=== PATIENT | female | born 1955 | race Caucasian/White ===

== ENCOUNTER 2020-04-09 18:02 | Emergency (ER) | payer MEDICARE, BC ==
[2020-04-09] MEDS ORDERED: ACETAMINOPHEN 325 MG TABLET PO ONE (20:28)
--- NOTE | 2020-04-09 20:34 | ER Document Report ---
HPI - HPI Time Seen by Provider: 04/09/20 20:29 Pain Level: 2 Notes: Patient is a 65-year-old female patient presented to emergency room with complaints of left wrist pain. Patient reports she fell over her crutches that she is using for an already existing right leg injury. she states this occurred just prior to arrival. - ROS Systems Reviewed and Negative: Yes All other systems reviewed and negative - REPRODUCTIVE Reproductive: DENIES: : - MUSCULOSKELETAL Musculoskeletal: REPORTS: Extremity pain Past Medical History - General Information source: Patient - Social History Smoking Status: Never Smoker Chew tobacco use (# tins/day): No Frequency of alcohol use: Rare Drug Abuse: None Family History: Reviewed & Not Pertinent Patient has homicidal ideation: No - Medical History Medical History: Negative Past Surgical History: Reports: Hx Tubal Ligation Vertical Provider Document - CONSTITUTIONAL Notes: PHYSICAL EXAMINATION: GENERAL: Well-appearing, well-nourished and in no acute distress. HEAD: Atraumatic, normocephalic. EYES: Pupils equal round extraocular movements intact, conjunctiva are normal. ENT: Nares patent NECK: Normal range of motion LUNGS: No respiratory distress Musculoskeletal: Swelling noted to left wrist, positive snuffbox tenderness, strong radial pulse, cap refill less than 3 seconds. NEUROLOGICAL: Normal speech, normal gait. PSYCH: Normal mood, normal affect. SKIN: Warm, Dry, normal turgor, no rashes or lesions noted. Course - Re-evaluation Re-evalutation: Wrist X-Ray 04/09/20 20:28 IMPRESSION: Acute distal radius fracture as above. - Vital Signs Vital signs: Temp Pulse Resp BP Pulse Ox 98.0 F 73 18 131/77 H 100 04/09/20 18:40 04/09/20 18:40 04/09/20 18:40 04/09/20 18:40 04/09/20 18:40 Procedures - Immobilization Left wrist Pre-Proc Neuro Vasc Exam: Normal Immobilizer type: Volar splint, Sling Performed by: PCT Post-Proc Neuro Vasc Exam: Normal Discharge - Discharge Clinical Impression: Distal radius fracture, left Qualifiers: Encounter type: initial encounter Fracture type: closed Fracture morphology: unspecified fracture morphology Qualified Code(s): S52.502A - Unspecified fracture of the lower end of left radius, initial encounter for closed fracture Condition: Stable Disposition: HOME, SELF-CARE Additional Instructions: Fractured Radius The bone called the radius is fractured. This type of fracture is typically caused by falling onto the outstretched hand. The fracture is not serious, however, and should heal well with adequate protection. Your physician's evaluation shows the bone is in good position to heal. A cast or splint is used to protect the fracture. For the first few days after the injury, the arm should be elevated and ice packed. Healing takes from three to eight weeks, depending on the age of the patient and the seriousness of the fracture. Your doctor has explained the treatment plan. It's important that you follow up as instructed to prevent complications. Call the doctor or return at once if severe pain or swelling occur, or if the hand becomes numb, swollen, or discolored. FOLLOW UP WITH ORTHOPEDICS. ICE AND ELEVATE. TAKE TYLENOL AND IBUPROFEN NEEDED FOR PAIN.
--- NOTE | 2020-04-09 21:23 | RADIOLOGY REPORT (SQ) ---
Left wrist x-ray three views on 04/09/2020 at 8:36 PM Clinical indication: Left wrist pain after fall COMPARISON: None FINDINGS: There is an acute, slightly comminuted, impacted distal radius metaphysis fracture. There is slight dorsal displacement and dorsal angulation of the distal fracture fragment. There is mild diffuse osteopenia. No other fracture is noted. Visualized joints are well aligned. IMPRESSION: Acute distal radius fracture as above.
[2020-04-09 22:50] VITALS: BP 124/74
== END 2020-04-09 22:48 | disposition home or self-care (01) ==
LOC: ER 18:02
DX: S52.592A Other fractures of lower end of left radius, initial encounter for closed fracture (principal); W01.0XXA Fall on same level from slipping, tripping and stumbling without subsequent striking against object, initial encounter; Y99.0 Civilian activity done for income or pay
CPT/HCPCS: 99283; 73110; 29125; A9270

== ENCOUNTER 2020-06-11 02:49 | Emergency (ER) | payer MEDICARE, BC ==
[2020-06-11 03:02] VITALS: BP 119/73
== END 2020-06-11 03:30 | disposition left against medical advice (07) ==
LOC: ER 02:49
DX: Z53.21 Procedure and treatment not carried out due to patient leaving prior to being seen by health care provider (principal)

== ENCOUNTER → 2020-06-11 | Outpatient (CLI) | payer MEDICARE, BC ==
--- NOTE | 2020-06-11 14:25 | RADIOLOGY REPORT (SQ) ---
EXAM DESCRIPTION: VENOUS UNILATERAL UPPER IMAGES COMPLETED DATE/TIME: 06/11/2020 2:14 pm REASON FOR STUDY: LUE PAIN, SWELLING S52.532A COLLES' FRACTURE OF LEFT RADIUS, INIT FOR CLOS FX M79 .602 PAIN IN LEFT ARM COMPARISON: None. TECHNIQUE: Dynamic and static saucedo scale and color images acquired of the left arm venous system. Se lected spectral images acquired with additional compression and augmentation maneuvers. The contralat eral subclavian vein and internal jugular vein were also imaged. Images stored on PACS. LIMITATIONS: None. FINDINGS: INTERNAL JUGULAR VEIN: Normal phasicity, compression, augmentation. No visualized echogeni c material on saucedo scale. No defects on color images. Comparison opposite side normal. SUBCLAVIAN VEIN: Normal compression, augmentation. No visualized echogenic material on saucedo scale. No defects on color images. AXILLARY VEIN: Normal compression, augmentation. No visualized echogenic material on saucedo scale. No d efects on color images. BRACHIAL VEIN: Normal compression, augmentation. No visualized echogenic material on saucedo scale. No d efects on color images. BASILIC VEIN: Normal compression, augmentation. No visualized echogenic material on saucedo scale. No de fects on color images. CEPHALIC VEIN: Normal compression, augmentation. No visualized echogenic material on saucedo scale. No d efects on color images. OTHER: No other significant finding. CONTRALATERAL INTERNAL JUGULAR VEIN: Normal phasicity, compression and augmentation. No visualized echogenic material on saucedo scale. No de fects on color images. IMPRESSION: 1. NO EVIDENCE DVT OR SVT LEFT ARM. COMMENT: 1. The results of this examination were discussed with sound at 14:10 hours 06/11/2020 at 1 4:10 hours. TECHNICAL DOCUMENTATION: JOB ID: [id number] [employer]- All Rights Reserved Reading location - IP/workstation name: [email or web address]
== END ==
LOC: SP 12:40
PROVIDERS: ATTEND Orthopaedic Surgery
DX: M79.602 Pain in left arm (principal)
CPT/HCPCS: 93971